=== PATIENT | male | born 1955 ===

== ENCOUNTER 2022-07-16 15:03 | Emergency (ER) | payer OTHER ==
[~2022-07-16] VITALS: Ht 182.9 cm; Wt 100.0 kg
[2022-07-16 15:32] VITALS: BP 148/96
== END 2022-07-16 22:29 | disposition left against medical advice (07) ==
LOC: ER 15:03
DX: M25.552 Pain in left hip (principal); Z53.21 Procedure and treatment not carried out due to patient leaving prior to being seen by health care provider